=== PATIENT | male | born 1945 | race Caucasian/White ===

== ENCOUNTER 2018-11-17 13:17 | Inpatient (IN) | payer MEDICARE ==
[~2018-11-17] VITALS: Ht 152.4 cm; Wt 68.9 kg
[~2018-11-17 13:17] MED LIST: SIMV10TA6 PO
[2018-11-17] MEDS ORDERED: SODIUM CHLORIDE 0.9% 1,000 ML IV ONE (14:25)
[2018-11-17] MEDS ORDERED: ASPIRIN 81MG TABLET PO ONE (14:30)
[2018-11-17 14:56] LABS: BASOPHILS % 0.5 % (0.0-2.0); EOSINOPHILS % 0.6 % (0.0-5.0); HEMATOCRIT. 43.9 % (42.0-52.0); LYMPHOCYTES % 23.1 % (20.0-50.0); MEAN CORPUSCULAR HEMOGLOBIN 30.7 pg (28.0-32.0); MEAN CORPUSCULAR VOLUME 90.2 fL (80.0-94.0); MEAN PLATELET VOLUME 8.6 fl (7.4-10.4); NEUTROPHILS % 69.8 % (40.0-76.0); PLATELET 209 x1000/uL (130-400); RED BLOOD CELL COUNT 4.87 mill/uL (4.7-6.1); RED CELL DISTRIBUTION WIDTH 13.5 % (11.6-14.6)
[2018-11-17 15:00] LABS: CHLORIDE 107 mEq/L (98-107)
[2018-11-17 15:06] LABS: D-DIMER < 0.19 mg/L FEU (<0.50); PARTIAL THROMBOPLASTIN TIME 26.8 sec (23.4-31.0); PROTHROMBIN TIME 10.3 sec (9.1-11.1)
[2018-11-18] MEDS ORDERED: ACETAMINOPHEN 325MG TABLET PO PRN ×2 (00:45→16:00)
[2018-11-18] MEDS ORDERED: ONDANSETRON HCL 4MG/2ML INJ IV PRN (00:45)
[2018-11-18] MEDS ORDERED: IPRATROPIUM/ALBUTEROL 0.5-3(2.5)MG/3ML NEB INH PRN ×2 (00:45→16:00)
[2018-11-18] MEDS ORDERED: HYDROCODONE/ACETAMINOPHEN 5/325MG TABLET PO PRN ×2 (00:45→16:00)
[2018-11-18] MEDS ORDERED: CLONIDINE 0.1MG TABLET PO PRN ×2 (00:45→16:00)
[2018-11-18 06:37] LABS: CREATINE KINASE 138 IU/L (39-308)
[2018-11-18] MEDS: ASPIRIN 81MG EC TABLET PO SCH (09:00)
[2018-11-18 14:30] VITALS: BP 116/75
[2018-11-18] MEDS ORDERED: AMLO5TAB4 PO (15:51)
[2018-11-18] MEDS ORDERED: ASPI-1158 PO (15:51)
[2018-11-18 16:00] VITALS: BP_SYST 120; BP_SYST 125; BP_DIAS 67; BP_DIAS 78
[2018-11-18] MEDS ORDERED: ENOXAPARIN 40MG/0.4ML SYR SUBCUT SCH ×2 (16:00)
[2018-11-18 16:17] LABS: CREATINE KINASE 132 IU/L (39-308)
[2018-11-18 19:01] LABS: *AMPHETAMINES SCREEN URINE NEGATIVE (NEGATIVE); *BARBITURATES SCREEN URINE NEGATIVE (NEGATIVE); *BENZODIAZEPINES SCREEN URINE NEGATIVE (NEGATIVE); *COCAINE SCREEN URINE NEGATIVE (NEGATIVE)
[2018-11-18 19:02] LABS: CANNABINOID URINE SCREEN NEGATIVE (NEGATIVE); METHADONE URINE SCREEN NEGATIVE (NEGATIVE); OPIATES URINE SCREEN NEGATIVE (NEGATIVE); PHENCYCLIDINE URINE SCREEN NEGATIVE (NEGATIVE)
[2018-11-18 20:00] VITALS: BP 113/70
[2018-11-19] VITALS: BP 95/53
[2018-11-19 04:00] VITALS: BP 105/65
[2018-11-19 07:12] LABS: BASOPHILS % 0.5 % (0.0-2.0); HEMATOCRIT. 41.9 % (42.0-52.0); HEMOGLOBIN. 14.2 g/dL (14.0-18.0); LYMPHOCYTES % 31.6 % (20.0-50.0); MEAN CORPUSCULAR HEMOGLOBIN 31.7 pg (28.0-32.0); MEAN CORPUSCULAR VOLUME 93.6 fL (80.0-94.0); MEAN PLATELET VOLUME 9.1 fl (7.4-10.4); MONOCYTES % 9.7 % (2.0-8.0); NEUTROPHILS % 56.2 % (40.0-76.0); PLATELET 179 x1000/uL (130-400); RED BLOOD CELL COUNT 4.47 mill/uL (4.7-6.1); RED CELL DISTRIBUTION WIDTH 13.8 % (11.6-14.6)
[2018-11-19 07:22] LABS: CHLORIDE 111 mEq/L (98-107)
[2018-11-19 07:34] LABS: CREATINE KINASE 162 IU/L (39-308); HDL CHOLESTEROL 50 mg/dL (40-59); LDL CHOLESTEROL 106 mg/dL (5-100)
[2018-11-19 07:36] LABS: CREATINE KINASE MB FRACTION 3.4 ng/mL (0.5-3.6)
[2018-11-19 08:00] VITALS: BP_SYST 104; BP_SYST 154; BP_DIAS 60; BP_DIAS 74
[2018-11-19 08:33] LABS: DIGOXIN < 0.1 ng/mL (0.9-2.0)
[2018-11-19] MEDS ORDERED: ASPIRIN 81MG EC TABLET PO SCH (09:00)
[2018-11-19] MEDS ORDERED: REGADENOSON 0.4 MG/5 ML IV ONE ×2 (09:30→10:27)
[2018-11-19] MEDS: ASPIRIN 81MG EC TABLET PO SCH (11:37)
[2018-11-19 12:00] VITALS: BP 109/66
[2018-11-19 16:24] VITALS: BP 131/80
[2018-11-19 16:28] VITALS: BP 131/80
[2018-11-19] MEDS ORDERED: ATORVASTATIN CALCIUM 40MG TABLET PO SCH (21:00)
== END 2018-11-19 18:39 | disposition home or self-care (01) | DRG 311 ==
LOC: ER 13:32 → 8WST 15:43 → ENRESERV 11-18 13:29
PROVIDERS: ADMIT Internal Medicine; ATTEND Internal Medicine
DX: I24.9 Acute ischemic heart disease, unspecified (principal); R07.89 Other chest pain; I10 Essential (primary) hypertension; E78.5 Hyperlipidemia, unspecified; E87.5 Hyperkalemia; E78.00 Pure hypercholesterolemia, unspecified; M19.90 Unspecified osteoarthritis, unspecified site; N40.0 Benign prostatic hyperplasia without lower urinary tract symptoms; Z79.899 Other long term (current) drug therapy; Z79.82 Long term (current) use of aspirin; Z98.41 Cataract extraction status, right eye
CPT/HCPCS: 36415; 71045; 78452; 80061; 80162; 80305; 82550; 82553; 83735; 83880; 84443; 84484; 85379; 93005; 93017; 93306; 96360; 99285; A9500; J1650; J2785; J7030